=== PATIENT | male | born 1975 | race Two or more races ===

== ENCOUNTER 2018-10-28 12:54 | Emergency (ER) | payer OTHER ==
[~2018-10-28] VITALS: Ht 177.8 cm; Wt 79.4 kg
[2018-10-28 13:01] VITALS: BP 132/72
== END 2018-10-28 14:23 | disposition home or self-care (01) ==
LOC: ER 12:54
DX: S20.211A Contusion of right front wall of thorax, initial encounter (principal); W50.1XXA Accidental kick by another person, initial encounter; Y93.75 Activity, martial arts; Y92.89 Other specified places as the place of occurrence of the external cause; Y99.8 Other external cause status
CPT/HCPCS: 71100-TC